=== PATIENT | female | born 1960 | race Caucasian/White ===

== ENCOUNTER 2016-11-25 09:19 | Outpatient (CLI) | payer MEDICAID | END 2016-11-25 09:20 | disposition home or self-care (01) | DX: Z00.00 Encounter for general adult medical examination without abnormal findings (principal); Z83.3 Family history of diabetes mellitus; R94.6 Abnormal results of thyroid function studies ==

== ENCOUNTER 2016-12-05 10:52 | Outpatient (CLI) | payer MEDICAID | END 2016-12-05 10:53 | disposition home or self-care (01) | DX: Z12.31 Encounter for screening mammogram for malignant neoplasm of breast (principal) ==

== ENCOUNTER 2017-01-19 09:22 | Day surgery (SDC) | payer MEDICAID ==
[2017-01-19] MEDS ORDERED: LACTATED RINGERS 1,000 ML IV ONE (09:30)
[2017-01-19] MEDS ORDERED: MIDAZOLAM 2 MG/2 ML VIAL IVP ONE (11:17)
[2017-01-19] MEDS ORDERED: fentaNYL 250 MCG/5 ML VIAL IVP ONE (11:17)
== END 2017-01-19 09:23 | disposition home or self-care (01) ==
PROC: 0DBL8ZX Excision of Transverse Colon, Via Natural or Artificial Opening Endoscopic, Diagnostic (ICD-10-PCS; 2017-01-19)
PROC: 0DBK8ZX Excision of Ascending Colon, Via Natural or Artificial Opening Endoscopic, Diagnostic (ICD-10-PCS; 2017-01-19)
PROC: 0DBP8ZX Excision of Rectum, Via Natural or Artificial Opening Endoscopic, Diagnostic (ICD-10-PCS; principal; 2017-01-19 10:30)
DX: Z12.11 Encounter for screening for malignant neoplasm of colon (principal); D12.3 Benign neoplasm of transverse colon; K62.1 Rectal polyp; D12.2 Benign neoplasm of ascending colon; K64.4 Residual hemorrhoidal skin tags; K21.9 Gastro-esophageal reflux disease without esophagitis; Z90.49 Acquired absence of other specified parts of digestive tract; Z83.3 Family history of diabetes mellitus; Z80.0 Family history of malignant neoplasm of digestive organs; F17.210 Nicotine dependence, cigarettes, uncomplicated; K57.30 Diverticulosis of large intestine without perforation or abscess without bleeding
CPT/HCPCS: 45380; 45385; J3010; J7120

== ENCOUNTER 2017-07-07 13:38 | Outpatient (CLI) | payer MEDICAID ==
--- NOTE | 2017-07-07 15:14 | XRAY Report ---
LEFT HIP AND PELVIS: 07/07/2017 CLINICAL INDICATION: Pain. FINDINGS: Frontal view of the hips and pelvis and frogleg lateral view of the left hip demonstrate m ild left hip osteoarthritis, with small osteophytes. There is no evidence of acute fracture or dislo cation. No radiopaque foreign body is appreciated in the soft tissues. IMPRESSION: MILD LEFT HIP OSTEOARTHRITIS. JOB #: [id number] EXT JOB #:[id number]
== END 2017-07-07 13:39 | disposition home or self-care (01) ==
LOC: DI.N 13:38
PROVIDERS: ATTEND Nurse Practitioner Gerontology
DX: M25.552 Pain in left hip (principal); M16.12 Unilateral primary osteoarthritis, left hip

== ENCOUNTER 2017-09-23 15:06 | Emergency (ER) | payer MEDICAID ==
[2017-09-23 15:12] VITALS: BP 127/78
--- NOTE | 2017-09-23 15:47 | ED Physician Documentation ---
PD HPI HEENT - Stated complaint Stated Complaint: TOOTH PX - Chief complaint Chief Complaint: Heent - History obtained from History obtained from: Patient - History of Present Illness Timing - onset: How many days ago (several) Timing - details: Gradual onset, Still present Location: Tooth (lower left) Associated symptoms: Facial swelling (the past day). No: Fever Recently seen: Emergency Dept (seen here few days ago and had Rx Amox; facial swelling and more pain since.) Review of Systems Constitutional: denies: Fever, Chills Throat: reports: Dental pain / toothache. denies: Sore throat Cardiac: denies: Chest pain / pressure, Palpitations Respiratory: denies: Dyspnea, Cough PD PAST MEDICAL HISTORY - Past Medical History Cardiovascular: Murmur Endocrine/Autoimmune: None GI: GERD, Ulcers : None HEENT: Chronic sinusitis Psych: Claustrophobia Musculoskeletal: Osteoarthritis, Scoliosis, Chronic back pain, Other Derm: Eczema - Past Surgical History Past Surgical History: Yes General: Cholecystectomy Ortho: ACL reconstruction - Present Medications Home Medications: Ambulatory Orders Medication Instructions Recorded Confirmed Omeprazole [PriLOSEC] 20 mg ORAL DAILY 01/18/17 09/23/17 Acetaminophen [Tylenol] 650 mg PO Q6H PRN 09/18/17 09/23/17 Amoxicillin 500 mg PO Q8H #30 capsule 09/18/17 09/23/17 Chlorhexidine Gluconate [Peridex] 5 ml MM BID #118 ml 09/23/17 Clindamycin [Cleocin] 150 mg PO TID #21 capsule 09/23/17 Tramadol HCl 50 mg PO Q6H PRN #20 tablet 09/23/17 - Allergies Allergies/Adverse Reactions: Allergies Allergy/AdvReac Type Severity Reaction Status Date / Time aspirin Allergy Cramps Verified 09/23/17 15:12 hydrocodone bitartrate * Allergy Dizziness Verified 09/23/17 15:12 [From Vicodin] morphine Allergy Anxiety Verified 09/23/17 15:12 pamabrom [From Midol] Allergy Dizziness Verified 09/23/17 15:12 pseudoephedrine HCl * Allergy Dizziness Verified 09/23/17 15:12 [From Sudafed] - Social History Does the pt smoke?: Yes Smoking Status: Current every day smoker Does the pt drink ETOH?: No Does the pt have substance abuse?: No - Immunizations Immunizations are current?: Yes - POLST Patient has POLST: No PD ED PE NORMAL - Vitals Vital signs reviewed: Yes - General General: Alert and oriented X 3, No acute distress, Well developed/nourished - HEENT HEENT: No: Dentition benign (lower left tooth with cavity and tender to percussion. Gum swelling and redness, without fluctuance for draining. ) - Neck Neck: Supple, no meningeal sign, No adenopathy, Other (some lower facial swelling noted. ) - Cardiac Cardiac: RRR, No murmur - Respiratory Respiratory: Clear bilaterally - Derm Derm: Normal color, Warm and dry Results - Vitals Vitals: Oxygen O2 Source Room air PD MEDICAL DECISION MAKING - ED course Complexity details: considered differential (has been on amox for few days and has more swelling. No area of fluctuance to drain. Will change abx. ), d/w patient Departure - Departure Disposition: 01 Home, Self Care Clinical Impression: Dental infection, Pain due to dental caries Condition: Stable Record reviewed to determine appropriate education?: Yes Follow-Up: Gracy Larose ARNP [Primary Care Provider] - Prescriptions: Chlorhexidine Gluconate [Peridex] 5 ml MM BID #118 ml Clindamycin [Cleocin] 150 mg PO TID #21 capsule Tramadol HCl 50 mg PO Q6H PRN #20 tablet PRN Reason: Pain Comments: Stop the amoxicillin and changed to clindamycin instead. Take it with food. Also use chlorhexidine oral rinse 2-3 times a day particularly swishing around the front teeth and gums. For the pain continue Tylenol 4 times a day as needed. Hold off on any ibuprofen so does not bother her stomach. Use tramadol instead every 6 hours as needed. Follow-up with [facility] [address] as planned in October. Return in here or your primary care if still not improving over the next several days. Discharge Date/Time: 09/23/17 16:36
[2017-09-23] MEDS ORDERED: ACETAMINOPHEN 325 MG TABLET PO STA (16:19)
[2017-09-23] MEDS ORDERED: CLINDAMYCIN 150 MG CAPSULE PO STA (16:19)
[2017-09-23] MEDS ORDERED: traMADol 50 MG TABLET PO STA (16:19)
[2017-09-23] MEDS ORDERED: CLINDAMYCIN 150 MG CAPSULE PO ONE (16:34)
[2017-09-23] MEDS ORDERED: ACETAMINOPHEN 325 MG TABLET PO ONE (16:34)
[2017-09-23] MEDS ORDERED: traMADol 50 MG TABLET PO ONE (16:34)
== END 2017-09-23 16:36 | disposition home or self-care (01) ==
LOC: ED 15:06
DX: K04.7 Periapical abscess without sinus (principal); K02.9 Dental caries, unspecified; K08.89 Other specified disorders of teeth and supporting structures; K21.9 Gastro-esophageal reflux disease without esophagitis; M19.90 Unspecified osteoarthritis, unspecified site; Z87.11 Personal history of peptic ulcer disease; F17.200 Nicotine dependence, unspecified, uncomplicated
CPT/HCPCS: 99283; A9270

== ENCOUNTER 2018-07-20 11:55 | Outpatient (CLI) | payer MEDICAID ==
--- NOTE | 2018-07-25 09:42 | Mammography Report ---
Reason: screening mammo Procedure Date: 07/20/2018 Accession Number: [id number] / [id number] Procedure: DENZEL - Screening Mammo Dig Bilat CPT Code: FULL RESULT: EXAM: Screening Mammo Dig Bilat DATE: 07/20/2018 12:46 PM CLINICAL HISTORY: Screening mammogram TECHNIQUE: Bilateral CC and MLO views were obtained. COMPARISON: Mammogram 12/05/2016 FINDINGS: There are scattered fibroglandular densities. There are benign-appearing calcifications and lymph nodes. No suspicious masses, clustered microcalcifications, or regions of architectural distortion are identified. IMPRESSION: Benign findings RECOMMENDATION: Routine annual screening unless otherwise clinically indicated. BIRADS CATEGORY 2: Benign findings STANDARD QUALIFYING STATEMENTS: 1. This examination was reviewed with the aid of Computer-Aided Detection (CAD). 2. A negative or benign imaging report should not delay biopsy if clinically suspicious findings are present. Consider surgical consultation if warrented. More than 5% of cancers are not identified by imaging. 3. Dense breasts may obscure an underlying neoplasm.
== END 2018-07-20 11:56 | disposition home or self-care (01) ==
LOC: DI 11:55
PROVIDERS: ATTEND Nurse Practitioner Gerontology
DX: Z12.31 Encounter for screening mammogram for malignant neoplasm of breast (principal)
CPT/HCPCS: 77067

== ENCOUNTER 2018-11-12 12:32 | Outpatient (CLI) | payer MEDICAID ==
[2018-11-12 13:15] LABS: BASOPHILS % (AUTO) 0.5 %; EOSINOPHILS # (AUTO) 0.1 10^3/uL (0.0-0.7); EOSINOPHILS % (AUTO) 1.3 %; HGB - HEMOGLOBIN 14.7 g/dL (12.0-16.0); LYMPHOCYTES # (AUTO) 1.4 10^3/uL (1.5-3.5); LYMPHOCYTES % (AUTO) 23.3 %; MEAN CORPUSCULAR HEMOGLOBIN 32.9 pg (27.0-31.0); MEAN CORPUSCULAR HGB CONC 33.8 g/dL (32.0-36.0); MEAN CORPUSCULAR VOLUME 97.5 fL (81.0-99.0); MEAN PLATELET VOLUME 9.3 fL (7.9-10.8); MONOCYTES # (AUTO) 0.4 10^3/uL (0.0-1.0); MONOCYTES % (AUTO) 7.2 %; NEUTROPHILS # (AUTO) 4.1 10^3/uL (1.5-6.6); NEUTROPHILS % (AUTO) 67.7 %; PLT - PLATELET COUNT 222 10^3/uL (130-450); RED BLOOD COUNT 4.45 10^6/uL (4.20-5.40)
[2018-11-12 13:17] LABS: BILIRUBIN,URINE NEGATIVE (NEGATIVE); GLUCOSE, URINE (UA) NEGATIVE (NEGATIVE); KETONES,URINE (UA) NEGATIVE (NEGATIVE); LEUKOCYTE ESTERASE, URINE NEGATIVE (NEGATIVE); NITRITE,URINE NEGATIVE (NEGATIVE); OCCULT BLOOD,URINE NEGATIVE (NEGATIVE); PH,URINE 6.5 PH (5.0-7.5); PROTEIN,URINE NEGATIVE (NEGATIVE); UROBILINOGEN,URINE 0.2 (NORMAL) E.U./dL (NORMAL)
[2018-11-12 13:20] LABS: CLARITY,URINE CLEAR (CLEAR)
[2018-11-12 13:20] LABS: ALBUMIN 4.4 g/dL (3.2-5.5); ALBUMIN/GLOBULIN RATIO 1.8 (1.0-2.2); BILIRUBIN,TOTAL 0.5 mg/dL (0.2-1.0); CREATININE 0.6 mg/dL (0.4-1.0); TOTAL PROTEIN 6.9 g/dL (6.7-8.2)
== END 2018-11-12 12:33 | disposition home or self-care (01) ==
LOC: LAB 12:32
PROVIDERS: ATTEND Obstetrics & Gynecology
DX: D06.9 Carcinoma in situ of cervix, unspecified (principal); N81.4 Uterovaginal prolapse, unspecified; N81.6 Rectocele; R10.2 Pelvic and perineal pain; R15.0 Incomplete defecation; K59.09 Other constipation; R15.9 Full incontinence of feces
CPT/HCPCS: 36415; 80053; 81003; 85025; 86850; 86900; 86901

== ENCOUNTER 2018-11-14 07:20 | Observation (INO) | payer MEDICAID ==
--- NOTE | 2018-11-05 14:59 | HISTORY & PHYSICAL EXAMINATION ---
DATE OF SERVICE: 11/15/2018 Physician: Flaco Astorga MD HISTORY/PHYSICAL 11/05/2018 FOR APPROXIMATE ANTICIPATED DATE OF 11/15/2018 DIAGNOSES 1. Cervical intraepithelial neoplasia MAHAMED 3. 2. Grade 2-3 rectocele with smaller cystocele. 3. Chronic constipation. 4. Fecal incontinence. HISTORY OF PRESENT ILLNESS: Patient is a 58-year-old , 2 para 2002, with a history of traumatic births. Her delivery involved a large episiotomy with some manner of internal rotation. It took her several days of hospitalization to recover. Second delivery was easier but was with mid forceps. For the last two years, she reports pelvic pressure and at times feels as if she is sitting on her vagina. She notes that her uterus shifts position and falls, which creates pain as well. She has noticed stress urinary incontinence but does have urinary urgency with frequent voiding. She notes chronic constipation and occasional fecal incontinence when her stools are loose. The fecal incontinence has become increasingly worse since her cholecystectomy. She uses pads and protective clothing. Patient has a history of an abnormal Pap smear, ASCUS, the prompted colposcopy. 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 Patient was counseled on the need for treatment and LEEP procedure was discussed. LEEP was rejected in favor of hysterectomy for permanent resolution of cervical dysplasia. Patient reports situational adjustment reaction and anxiety bouts. She has GERD and left trochanteric bursitis. ALLERGIES: NO KNOWN DRUG ALLERGIES. MEDICATIONS 1. Triamcinolone cream. 2. Omeprazole 20 mg time release daily. 3. Ibuprofen 200 mg every 4 hours p.r.n. 4. Systane 0.4-0.3 percent. REVIEW OF SYSTEMS CONSTITUTIONAL: No unexplained weight losses, fevers, chills. HEENT: Dry eyes; otherwise negative. CARDIAC: Patient states she has had a lifetime heart murmur that has not changed. She has no dyspnea on exertion or chest pain. RESPIRATORY: Long time smoker, admits to smoker's cough. GASTROINTESTINAL: GERD as noted before. GENITOURINARY: Referenced above. MUSCULOSKELETAL: Hip bursitis. SKIN Eczema. NEUROLOGIC: Negative. PSYCHIATRIC: Anxiety disorder. ENDOCRINE: Negative. HEMATOLOGIC/LYMPHATIC: The patient denies easy bleeding tendencies. BREASTS: Negative. SOCIAL HISTORY: . Has a close friend and confidant. Long time smoker, a half a pack per day. No drug or alcohol use noted. FAMILY HISTORY: Denies family history of ovarian cancer, colon cancer. PHYSICAL EXAMINATION VITAL SIGNS: As posted. Office blood pressure 98/62. Height and weight not in office record. HEENT: Supple neck. No thyromegaly, dentition in good repair. CARDIAC: Grade 2/6 systolic ejection murmur with no diastolic component, rub, or gallop. ABDOMEN: No organomegaly. No tenderness. No evidence of herniation. EXTERNAL GENITALIA: Mild atrophy. No lesions. EXTREMITIES: Nonedematous somewhat limited range of motion. NEUROLOGIC: Grossly intact. Pudendal nerves intact. VAGINA: No blood, discharge, or lesions. CERVIX: Mild cervicitis. GENITOURINARY: Uterus is hypermobile, normal size. Adnexa, normal size. Ovaries, right and left, no tenderness. PSYCHIATRIC: Alert, appropriate. ADMISSION LABORATORY/DATA: Pending. Chest x-ray and EKG pending. ASSESSMENT: Patient is a 58-year-old woman who has developed pelvic organ prolapse after a traumatic births. She currently has difficulty with fecal incontinence and pelvic pressure. The prolapse is predominantly in the posterior compartment but does involve the anterior compartment and uterus. We discussed use of pessary, which was rejected. Patient has a history of MAHAMED 3 and desires excision as opposed to LEEP or Conization. Surgery would remedy a prolapse and MAHAMED at the same time. We discussed the risks and benefits of surgery. She is aware of blood loss, transfusion, infection, damage to urinary tract or intestines, failure of the repair, and anesthesia reactions/. We discussed these in detail. We reviewed the intended procedure, LAVH with BSO. We reviewed ACOG pamphlets on hysterectomy, prolapse and prolapse repair in detail. Patient is certain at this point of her decision. PLAN: LAVH with anterior and posterior repair and Garcia's procedure. If Garcia's does not provide adequate apical support, we will move to sacrospinous suspension procedure. In addition to the usual prolapse repair, perineoplasty will be done as well as cystoscopy. TD: 11/05/2018 13:30 [facility]
[~2018-11-14 07:20] MED LIST: ceFAZolin 2 GM/50 ML 2 GM/50 ML BAG IV ONE
[2018-11-14] MEDS ORDERED: BUPIVACAINE 0.25%-EPI 1:200000 PF 30 ML VIAL ONE (07:59)
[2018-11-14] MEDS ORDERED: LACTATED RINGERS 1,000 ML IV ONE ×2 (08:14→10:38)
--- NOTE | 2018-11-14 08:24 | ANESTHESIA ---
Pre-Anesthesia VS, & Labs - Diagnosis MAHAMED 3, 3rd degree rectocele, 1st degree cystocele, uterine prolapse, pelvic pain, chronic constipation and fecal incontinence - Procedure Laprascopic assisted vaginal hysterectomy with bilateral sapin-oopherectomy, anterior/posterior repair, McCalls culdoplasty, perinealplasty, cystoscopy Vital Signs: Temp Pulse Resp BP Pulse Ox 36.6 C 74 16 122/70 100 11/14/18 07:40 11/14/18 07:40 11/14/18 07:40 11/14/18 07:40 11/14/18 07:40 Height 5 ft Weight (kg) 58.4 kg Body Mass Index 29.7 - NPO >8 hours - Is Patient ?: No Home Medications and Allergies Home Medications: Ambulatory Orders Multivitamin [Multiple Vitamins] 1 each PO DAILY 11/12/18 Omeprazole [PriLOSEC] 20 mg ORAL DAILY 01/18/17 Acetaminophen [Tylenol] 650 mg PO Q6H PRN 09/18/17 Multivitamin [Multiple Vitamins] 1 each PO DAILY 11/12/18 Allergies/Adverse Reactions: Allergies Allergy/AdvReac Type Severity Reaction Status Date / Time hydrocodone bitartrate * Allergy Intermediate " causes Verified 11/14/18 07:55 [From Vicodin] heart pounding" aspirin Allergy Cramps Verified 11/12/18 13:43 diazepam [From Valium] Allergy Unknown Verified 11/14/18 07:55 morphine Allergy Anxiety Verified 11/12/18 13:43 pamabrom [From Midol] Allergy palpitation Verified 11/12/18 13:43 s pseudoephedrine HCl * Allergy palpitation Verified 11/12/18 13:43 [From Sudafed] s Anes History & Medical History - Anesthetic History Anesthesia Complications: reports: No previous complications - Medical History Cardiovascular: reports: Murmur Pulmonary: reports: None Gastrointestinal: reports: GERD (controlled with medication), Ulcers, Chronic constipation Urinary: reports: None Neuro: reports: None Musculoskeletal: reports: Osteoarthritis, Chronic back pain, Other Endocrine/Autoimmune: reports: None Blood Disorders: reports: None Skin: reports: Eczema Smoking Status: Current every day smoker (1/2 pack per day for 30 years) Psychosocial: reports: No issues indicated - Surgical History General: Cholecystectomy Gynecologic: section Orthopedic: Arthroscopic surgery Results - EKG Results EKG Comparison: Reviewed EKG, Normal EKG Exam General: Alert, Oriented x3, Cooperative, No acute distress Dental: Dentures full Upper, Dentures full Lower Mouth Openin Fingerbreadth Neck Mobility: Normal Mallampati classification: II Thyromental Distance: 4-6 cm Respiratory: Lungs clear, Normal breath sounds, No respiratory distress, No accessory muscle use Cardiovascular: Regular rate, Normal S1, Normal S2, No murmurs Mental/Cognitive Status: Alert/Oriented X3, Normal for patient Plan Anesthesia Type: General Consent for Procedure(s) Verified and Reviewed: Yes Code Status: Attempt Resuscitation ASA classification: 2-Mild systemic disease Is this case an emergency?: No
--- NOTE | 2018-11-14 08:36 | XRAY Report ---
Reason: pre op. Procedure Date: 11/14/2018 Accession Number: [id number] / [id number] Procedure: XR - Chest 2 View X-Ray CPT Code: 74673 FULL RESULT: EXAM: CHEST RADIOGRAPHY EXAM DATE: 11/14/2018 08:22 AM. CLINICAL HISTORY: Pre op. COMPARISON: None. TECHNIQUE: 2 views. FINDINGS: Lungs/Pleura: No focal consolidation, pneumothorax, or pleural effusion. A few faint peripheral opacities at the right lung base likely represent atelectasis or scar. Mediastinum: Heart and mediastinal contours are unremarkable. Other: Healed right posterolateral seventh rib fracture. Mild dextroconvex thoracolumbar scoliosis. Surgical clips are present in the right upper quadrant of the abdomen. IMPRESSION: No evidence of active cardiopulmonary process. RADIA
[2018-11-14] MEDS ORDERED: ONDANSETRON 4 MG/2 ML VIAL IVP PRN (09:22)
--- NOTE | 2018-11-14 09:29 | OPERATIVE REPORT ---
Operative Report - General Planned Procedure: LAVH with prolapse repair Pre-Op Diagnosis: Third-degree rectocele first degree cystocele with uterine prolapse; MAHAMED 3 Procedure Performed: laparoscopic-assisted vaginal hysterectomy, (LAVH); Sacral spinous vaginal suspension; bilateral salpingo-oophorectomy, (BSO); rectocele repair; Garcia's culdoplasty; cystoscopy Post Op Diagnosis: Same as above - Procedure Note Primary Surgeon: Flaco Astorga MD, FACOG, FICS Secondary Surgeon: Flaco Fox MD, FACOG Anesthesia Provider: Michael Navas MD Anesthesia Technique: General ET tube, Other (Local 0.25% Marcaine) Pathology: Tubes ovaries and uterus IV Fluids (mL): 1,000 Estimated Blood Loss (mL): 50 Urine Output (mL): 150 (Clear with some methylene blue staining) Drain/Tube Type: Other (Subramanian catheter) Complications: None - Other Other Information/Narrative: PREOP Prior to entering the OR, I met the patient and family in the preoperative holding room. We reviewed her informed consent. Our discussion included occasions, mechanics of the procedures, intended benefits, risks /possible complications and alternatives. She is aware of the possibility of blood loss, transfusion, wound infection, damage to bowel, damage to bladder or urinary tract and postoperative pain. She understands that surgery may not remedy all of her problems and over time prolapse could develop. We discussed oophorectomy again and the patient states that she would like to remove her ovaries. We discussed rectocele repair and patient understands that this will probably improve her defecate fei function but may not remedy her fecal incontinence. All questions were reviewed and answered. Informed consent paperwork was signed. Patient's medical history and intended procedure was reviewed with anesthesiology and OR staff. FINDINGS 1. The external exam genitalia were examined and no concerning lesions were discovered. There was no evidence of genital trauma. The hiatus was 5.0 centimeters in diameter. The clitoris was of normal size. The distribution of pubic hair was normal. The urethra was was had a appropriate angle and of normal caliber. 2. Examination of the vagina found a normal rugated mucosa without evidence of lesions. There was no blood or discharge evident. Note the vagina had been prepped prior to examination. There was 3rd degree rectocele extruding through the hymenal ring and approximately the size of an orange. The cystocele was smaller and post hysterectomy when some apical support was restored it was much smaller than original exam. 3. Cervix was without significant cervicitis or visible plaques/lesions. There was no paracervical fullness. 4. Uterus was retroverted anteflexed and normal size without evidence of . The contour the uterus was smooth and not suggestive of fibroids. 5. Ovaries were of normal size and mobile. The left ovarian capsular surface had fibrosis and scarring. 6. Rectal vaginal exam documented there were no intraluminal stitches. LAVH Patient was brought into the operating room and placed on the table in the supine position. She was uneventfully induced and intubated. She was moved to the low dorsal lithotomy position on [facility] mobile stirrups. Timeout briefing was done per protocol. She was prepped and draped in the customary sterile fashion. Exam under anesthesia was done. A Graves speculum was used to visualize the cervix. The anterior cervical lip was grasped with single-tooth tenaculum. Serial application of Hegar probes was employed to determine the endocervical axis and gently dilate. HUMI uterine manipulator was placed uneventfully. All instruments were then removed from the vagina. Subramanian was placed, with clear urine output. After injection of Marcaine quarter percent with epinephrine local, a small incision was placed under the umbilical skin fold. A 5 mm Visiport trocar was introduced through the incision and into the abdomen under direct visualization. The abdomen was insufflated with CO2 gas at 12 mm of pressure. Atraumatic entry was confirmed. A 5 mm trocars were uneventfully inserted into the left and right lower quadrant under direct visualization. Patient was placed in deeper Trendelenburg and the abdominal and pelvic contents were assessed. Reference findings section and photos. The right tube was gently placed on medial / superior tension and then using a LigaSure it was uneventfully excised in a stepwise fashion. The right utero- ovarian ligament and round ligament were desiccated and divided. The broad ligament was dissected bluntly and then divided with LigaSure to skeletonize the right uterine vessels. Right uterine vessels and the position of the ureter were identified. Right uterine vessels were desiccated and divided using LigaSure. Blunt & sharp dissection developed the bladder flap using LigaSure. At this point, we converted to the vaginal phase. The abdomen was desufflated of CO2 gas and the legs were moved to a high dorsal lithotomy position. HUMI was removed. The cervix was grasped with Gerda clamps and placed on tension. Small aliquots of 0.25% Marcaine with epinephrine were injected around the cervix to create a liquid tourniquet. The cervix was then circumscribed with Bovie's pencil. Blunt and sharp dissection were used to develop the fascia. The posterior compartment was sharply entered and Stiner speculum placed. Anterior component was sharply entered and goal Jazmine retractor placed. Remnants of the uterosacral ligament were clamped, transected and transfixed with 0 Vicryl. The right uterosacral ligament slipped from the Jazmine clamp despite firm closure of the clamp. The pedicle was regrasped with Melchor clamp and double suture ligated with 0 Vicryl. Cardinal ligament, paracervical tissue was clamped, transected and transfixed with 0 Vicryl. At this point, the uterus was uneventfully delivered through the colpotomy wound. The pelvic peritoneum was pursestringed with 2 sutures of 2-0 Vicryl in multiple layers as to reduce the cul-de-sac pouch. The uterosacral ligament sutures were then sutured into the vaginal cuff to ensure suspension. We confirmed hemostasis was good. The vaginal mucosa was closed with a running stitch of 0 chromic. McCalls Culdoplasty could not be accomplished due to inability to locate the right uterosacral ligament. Therefore to provide adequate apical support we moved to the sacral spinous colpopexy. Posterior Colporrhaphy Small aliquots of quarter percent Marcaine with epinephrine were injected in the midline of the rectocele to begin [place] dissection. Next, a scalpel was used to incise the vaginal mucosa in the midline. Allis Bannock clamps were placed at the margins of the wound the pelvic fascial layer was identified then developed using both sharp and blunt dissection out towards the lateral margins of the rectocele. Wilber retractor was then placed and utilized to better visualize the extent of the test. Dissection was in a avascular plane and only minimal electrocautery was required for hemostasis, supplemented by an occasional stitch of 3-0 Vicryl. The denuded fascial area was rinsed with gentamicin solution and normal saline. By gross inspection, there was no incursion into the rectum. Eventually 2 large template flaps of vaginal mucosa were developed. The vaginal mucosa was trimmed to size then closed with a series of interrupted vertical mattress stitches of 2-0 Vicryl. Closure was done carefully as to maintain nieces and match the hymenal rings. Later digital exam of the rectum confirmed absence of intraluminal rectal stitches. Anterior Colporrhaphy was not performed due to the cystocele being corrected with better apical support. Additionally, her symptoms were minimal. Sacral spinous suspension with Capio device Using sharp and blunt dissection, a tunnel for the sacral spinous suspension sutures was created retroperitoneally down to the region of the sacral spine. The anatomy of the spine, sacral spinous ligament and margins of the colon were delineated by palpation. Next P.o. device was was loaded and brought to the field. The P.o. was passed down the tunnel and placed 1 cm lateral to the spine and then fired through the uterosacral ligament. Next a second O stitch was placed approximately 0.5 cm medial to the first uneventfully. These stitches were placed under traction and found to be very firm firmly placed. The stitches brand marketing intern were brought to the vaginal cuff closure with fixation knots placed through the underside of the vaginal mucosa to create frances effect. There was no bleeding and the large intestine was not encroached on. The frances stitches were then pulled tightly tied to suspend the vaginal tube superiorly and slightly to the right without any suture bridge. The tunnel was lavaged with gentamicin enriched irrigation. At this point the posterior colporrhaphy closure closure was completed as stitches were placed every centimeter down to the level of the hymenal ring Perineoplasty A V shaped section of perineal skin was removed cut with scalpel. The base of the triangle was at the 8 o'clock position and 4 o'clock position on the hymenal ring and apex extended down to the perianal region. Interrupted sutures of 0 Vicryl were then placed to reapply to approximate the perineal body and to reapproximate the levator plate muscles. The skin incision was closed with interrupted sutures of 2-0 Vicryl. Cystoscopy 70 degree video cystoscope was calibrated and white balanced. The cystoscope was lubricated and passed atraumatically through the urethra into the bladder cavity. Bladder was insufflated with sterile normal saline. Systematic inspection revealed no encroachment on the bladder such as stitches or perforation. Both ureters were patent with free flow of blue urine. Photographs were taken to document the same Disposition Patient was uneventfully awakened from general anesthesia and sent to the recovery room in stable condition. She will remain overnight and be reevaluated in the morning to determine further hospitalization is required. Final sponge needle and instrument count was confirm correct.
[2018-11-14] MEDS ORDERED: ROCURONIUM 50 MG/5 ML VIAL IVP ONE (10:00)
[2018-11-14] MEDS ORDERED: GLYCOPYRROLATE 1 MG/5 ML VIAL IVP ONE (10:00)
[2018-11-14] MEDS ORDERED: ceFAZolin 2 GM/50 ML 2 GM/50 ML BAG IV ONE (10:00)
[2018-11-14] MEDS ORDERED: ONDANSETRON 4 MG/2 ML VIAL IVP ONE (10:00)
[2018-11-14] MEDS ORDERED: NEOSTIGMINE 1 MG/1 ML 10 ML MDV IVP ONE (10:00)
[2018-11-14] MEDS ORDERED: fentaNYL 250 MCG/5 ML VIAL IVP ONE (10:00)
[2018-11-14] MEDS ORDERED: ACETAMINOPHEN 1,000 MG/100 ML 100 ML IV ONE (10:00)
[2018-11-14] MEDS ORDERED: PROPOFOL 200 MG/20 ML VIAL IVP ONE (10:00)
[2018-11-14] MEDS ORDERED: KETOROLAC 30 MG/ML VIAL IVP ONE (10:00)
[2018-11-14] MEDS ORDERED: BUPIVACAINE 0.25%-EPI 1:200000 PF 30 ML VIAL SUBQ ONE ×2 (10:30)
[2018-11-14] MEDS ORDERED: METHYLENE BLUE 0.5% 50 MG/10 ML AMPULE ONE (11:42)
[2018-11-14] MEDS ORDERED: HYDROmorphone 0.5 MG/0.5 ML SYRINGE ONE (12:37)
[2018-11-14] MEDS ORDERED: SODIUM CHLORIDE FLUSH 0.9% 10 ML SYRINGE ONE (13:16)
[2018-11-14] MEDS: IBUPROFEN 600 MG TABLET PO SCH ×2 (14:28→17:54)
[2018-11-14] MEDS: NICOTINE 14 MG PATCH TOP SCH (15:05)
[2018-11-14] MEDS ORDERED: ESTROGENS, CONJUGATED CREAM 30 GM TUBE VG ONE (15:21)
[2018-11-14] MEDS: oxyCODONE 5 MG TABLET PO PRN ×2 (15:59→22:56)
[2018-11-14] MEDS ORDERED: MAGNESIUM HYDROXIDE 2,400 MG/30 ML UDC PO PRN (20:17)
[2018-11-15] MEDS: IBUPROFEN 600 MG TABLET PO SCH ×4 (00:08→17:23)
[2018-11-15] MEDS ORDERED: SODIUM CHLORIDE FLUSH 0.9% 10 ML SYRINGE ONE (00:13)
[2018-11-15] MEDS: oxyCODONE 5 MG TABLET PO PRN ×5 (03:06→19:17)
[2018-11-15 06:24] LABS: BASOPHILS % (AUTO) 0.3 %; EOSINOPHILS # (AUTO) 0.1 10^3/uL (0.0-0.7); EOSINOPHILS % (AUTO) 1.1 %; HGB - HEMOGLOBIN 10.6 g/dL (12.0-16.0); LYMPHOCYTES # (AUTO) 2.1 10^3/uL (1.5-3.5); LYMPHOCYTES % (AUTO) 18.8 %; MEAN CORPUSCULAR HEMOGLOBIN 33.4 pg (27.0-31.0); MEAN CORPUSCULAR HGB CONC 33.5 g/dL (32.0-36.0); MEAN CORPUSCULAR VOLUME 99.8 fL (81.0-99.0); MEAN PLATELET VOLUME 8.6 fL (7.9-10.8); MONOCYTES % (AUTO) 8.7 %; NEUTROPHILS # (AUTO) 7.8 10^3/uL (1.5-6.6); NEUTROPHILS % (AUTO) 71.1 %; PLT - PLATELET COUNT 166 10^3/uL (130-450); RED BLOOD COUNT 3.18 10^6/uL (4.20-5.40); RED CELL DISTRIBUTION WIDTH 13.5 % (12.0-15.0)
[2018-11-15 06:35] LABS: ALBUMIN 2.8 g/dL (3.2-5.5); ALBUMIN/GLOBULIN RATIO 1.3 (1.0-2.2); BILIRUBIN,TOTAL 0.3 mg/dL (0.2-1.0); CALCIUM 7.7 mg/dL (8.5-10.3); CREATININE 0.6 mg/dL (0.4-1.0); TOTAL PROTEIN 4.9 g/dL (6.7-8.2)
[2018-11-15] MEDS: DOCUSATE SODIUM 250 MG CAPSULE PO SCH (09:06)
[2018-11-15] MEDS: NICOTINE 14 MG PATCH TOP SCH (09:06)
[2018-11-15] MEDS: LACTULOSE 10 GM /15 ML UDC PO SCH (09:06)
--- NOTE | 2018-11-15 09:50 | PROVIDER PROGRESS NOTE ---
Subjective - General Procedure Date: 11/14/18 Post Op Days: 1 Procedure Performed: LAVH, sacral spinous suspension, rectocele repair, cystoscopy - Review of Systems Wound/Incisions: positive: Healing well Drain Type: Subramanian out General: positive: No symptoms, Other (She reports pain controlled but requires q. 4-hour oxycodone.) HEENT: positive: No symptoms Pulmonary: positive: No symptoms Cardiovascular: positive: No symptoms Gastrointestinal: positive: No symptoms, Flatus (No bowel movement) Genitourinary: positive: Pain (She reports feeling sore) Musculoskeletal: positive: No symptoms Skin: positive: No symptoms Psychiatric: positive: No symptoms - Other Other Information/Narrative: Patient is up at the side of the bed and preparing to shower. She reports no orthostatic dizziness disturbance in cardiac rhythm dyspnea or chest pain. She took in a breakfast well without any problems. SCD devices functional. Vaginal packing and Subramanian discontinued. Objective - Patient Data Vital Signs: Vital Signs x48h Temp Pulse Pulse Resp BP Pulse Ox 11/15/18 07:35 98.1 F 82 16 92/50 L 97 11/15/18 06:20 72 103/50 L 11/15/18 05:45 98.4 F 75 16 86/48 L 98 Weight: Weight 11/13/18 11/14/18 11/15/18 23:59 23:59 23:59 Weight (kg) 58.4 kg Intake & Output: Intake and Output Totals x24h 11/13/18 11/14/18 11/15/18 23:59 23:59 23:59 Intake Total 2450 370 Output Total 750 1375 Balance 1700 -1005 - Lab Results Lab Results: 11/15/18 06:15 11/15/18 06:15 Other Lab Results: Lab Results x24hrs 11/15/18 11/15/18 Range/Units 06:15 06:15 WBC 11.0 H (4.8-10.8) x10^3/uL RBC 3.18 L (4.20-5.40) 10^6/uL Hgb 10.6 L (12.0-16.0) g/dL Hct 31.7 L (37.0-47.0) % MCV 99.8 H (81.0-99.0) fL MCH 33.4 H (27.0-31.0) pg MCHC 33.5 (32.0-36.0) g/dL RDW 13.5 (12.0-15.0) % Plt Count 166 (130-450) 10^3/uL MPV 8.6 (7.9-10.8) fL Neut # (Auto) 7.8 H (1.5-6.6) 10^3/uL Lymph # (Auto) 2.1 (1.5-3.5) 10^3/uL Mobile # (Auto) 1.0 (0.0-1.0) 10^3/uL Eos # (Auto) 0.1 (0.0-0.7) 10^3/uL Baso # (Auto) 0.0 (0.0-0.1) 10^3/uL Absolute Nucleated RBC 0.01 x10^3/uL Nucleated RBC % 0.1 /100WBC Sodium 136 (135-145) mmol/L Potassium 3.7 (3.5-5.0) mmol/L Chloride 106 (101-111) mmol/L Carbon Dioxide 27 (21-32) mmol/L Anion Gap 3.0 L (6-13) BUN 9 (6-20) mg/dL Creatinine 0.6 (0.4-1.0) mg/dL Estimated GFR (MDRD) 102 (>89) Glucose 108 H (70-100) mg/dL Calcium 7.7 L (8.5-10.3) mg/dL Total Bilirubin 0.3 (0.2-1.0) mg/dL AST 17 (10-42) IU/L ALT 12 (10-60) IU/L Alkaline Phosphatase 48 (42-121) IU/L Total Protein 4.9 L (6.7-8.2) g/dL Albumin 2.8 L (3.2-5.5) g/dL Globulin 2.1 (2.1-4.2) g/dL Albumin/Globulin Ratio 1.3 (1.0-2.2) - Current Medications Current Medications: Current Medications Generic Name Dose Route Start Last Admin Trade Name Freq PRN Reason Stop Dose Admin Docusate Sodium 250 mg 11/15/18 09:00 11/15/18 09:06 Colace 250mg Capsule PO 250 mg DAILY PRAVEEN Administration Ibuprofen 600 mg 11/14/18 12:00 11/15/18 06:20 Motrin PO 600 mg Q6HR PRAVEEN Administration Lactulose 10 gm 11/15/18 09:00 11/15/18 09:06 Enulose PO 10 gm DAILY PRAVEEN Administration Nicotine 1 patch 11/14/18 13:00 11/15/18 09:06 Nicoderm TOP Not Given DAILY PRAVEEN Ondansetron HCl 4 mg 11/14/18 09:22 11/14/18 15:59 Zofran Inj IVP 4 mg Q6HR PRN Administration Nausea / Vomiting Oxycodone HCl 5 mg 11/14/18 09:23 11/15/18 07:48 Roxicodone PO 5 mg Q4HR PRN Administration PAIN Ranitidine HCl 150 mg 11/14/18 16:00 11/15/18 09:06 Zantac PO 150 mg DAILY PRAVEEN Administration Physical Exam - Physical Exam General: positive: No acute distress HEENT: positive: Moist mucous membranes Neck: positive: Supple w/out meningeal sx Cardiac: positive: Regular Rate, Regular Rhythm Resipratory: positive: Clear to ausultation tierra, Other (Demonstrates ability to incentive spirometry) Abdomen: positive: Normal Bowel sounds, Surgical Scars (Surgical wounds normal) Female : positive: Normal external (Perineoplasty stitches intact), Other (Vaginal packing removed, gauze partially bloody but no fresh blood) Extremities: positive: No pedal edema Skin: positive: Warm and dry Neurologic: positive: Alert and Oriented X 3, Normal motor/no weakness, Normal Sensation, Normal Speech Assessment/Plan - Assessment/Plan Assessment: Patient has asymptomatic hypotension and is able to stand, walk and shower. Eris p in hemoglobin is as expected and not alarming. Electrolytes are normal. Neurologically she is intact. There is no evidence of cardiac event. This is only postop day 1 and we will require today to determine the significance of the hypotension. Repair seems intact. Plan: Will continue observation today to determine if hypotension is significant. Due to posterior repair she may have voiding dysfunction and require extension of hospitalization. Until the hypotension issue is sorted out she cannot safely be discharged.
--- NOTE | 2018-11-15 15:26 | PROVIDER PROGRESS NOTE ---
Subjective - Prog Note Date Prog Note Date: 11/15/18 Prog Note Time: 15:20 - Subjective Pt reports feeling: No change (Patient unable to void) Subjective: Toyin Briscoe is 1 day postop extensive pelvic reconstruction procedures and LAVH. Her Subramanian and packing were removed this morning. She is unable to void and finds this quite painful. Postvoid residual is 500. Overexpansion of bladder and excessive straining in danger the integrity of her prolapse repair. Given these difficulties she does not feel able to care for self at home at this time. Therefore she is moved to a observation status to allow time for recovery of b ladder and bowel function. Total time required should not exceed 96 hours. Objective - Vital Signs/Intake & Output Vital Signs: Vital Signs x48h Temp Pulse Pulse Resp BP Pulse Ox 11/15/18 12:58 97.9 F 66 16 109/60 100 11/15/18 11:43 98.1 F 64 18 113/63 100 11/15/18 07:35 98.1 F 82 16 92/50 L 97 Intake & Output: Intake & Output 11/12/18 11/13/18 11/14/18 11/15/18 23:59 23:59 23:59 23:59 Intake Total 2450 810 Output Total 750 1600 Balance 1700 -790 - Lab Results Fish Bones: 11/15/18 06:15 11/15/18 06:15 Other Labs: Lab Results x24hrs 11/15/18 11/15/18 Range/Units 06:15 06:15 WBC 11.0 H (4.8-10.8) x10^3/uL RBC 3.18 L (4.20-5.40) 10^6/uL Hgb 10.6 L (12.0-16.0) g/dL Hct 31.7 L (37.0-47.0) % MCV 99.8 H (81.0-99.0) fL MCH 33.4 H (27.0-31.0) pg MCHC 33.5 (32.0-36.0) g/dL RDW 13.5 (12.0-15.0) % Plt Count 166 (130-450) 10^3/uL MPV 8.6 (7.9-10.8) fL Neut # (Auto) 7.8 H (1.5-6.6) 10^3/uL Lymph # (Auto) 2.1 (1.5-3.5) 10^3/uL [place] # (Auto) 1.0 (0.0-1.0) 10^3/uL Eos # (Auto) 0.1 (0.0-0.7) 10^3/uL Baso # (Auto) 0.0 (0.0-0.1) 10^3/uL Absolute Nucleated RBC 0.01 x10^3/uL Nucleated RBC % 0.1 /100WBC Sodium 136 (135-145) mmol/L Potassium 3.7 (3.5-5.0) mmol/L Chloride 106 (101-111) mmol/L Carbon Dioxide 27 (21-32) mmol/L Anion Gap 3.0 L (6-13) BUN 9 (6-20) mg/dL Creatinine 0.6 (0.4-1.0) mg/dL Estimated GFR (MDRD) 102 (>89) Glucose 108 H (70-100) mg/dL Calcium 7.7 L (8.5-10.3) mg/dL Total Bilirubin 0.3 (0.2-1.0) mg/dL AST 17 (10-42) IU/L ALT 12 (10-60) IU/L Alkaline Phosphatase 48 (42-121) IU/L Total Protein 4.9 L (6.7-8.2) g/dL Albumin 2.8 L (3.2-5.5) g/dL Globulin 2.1 (2.1-4.2) g/dL Albumin/Globulin Ratio 1.3 (1.0-2.2)
[2018-11-15] MEDS ORDERED: MAGNESIUM HYDROXIDE 2,400 MG/30 ML UDC PO SCH (17:21)
[2018-11-16] MEDS: IBUPROFEN 600 MG TABLET PO SCH ×4 (00:27→18:53)
[2018-11-16 05:32] LABS: BASOPHILS % (AUTO) 0.4 %; EOSINOPHILS # (AUTO) 0.1 10^3/uL (0.0-0.7); EOSINOPHILS % (AUTO) 1.3 %; HGB - HEMOGLOBIN 10.6 g/dL (12.0-16.0); LYMPHOCYTES # (AUTO) 2.4 10^3/uL (1.5-3.5); LYMPHOCYTES % (AUTO) 23.9 %; MEAN CORPUSCULAR HEMOGLOBIN 33.1 pg (27.0-31.0); MEAN CORPUSCULAR VOLUME 100.3 fL (81.0-99.0); MEAN PLATELET VOLUME 8.9 fL (7.9-10.8); MONOCYTES # (AUTO) 0.9 10^3/uL (0.0-1.0); MONOCYTES % (AUTO) 8.9 %; NEUTROPHILS # (AUTO) 6.5 10^3/uL (1.5-6.6); NEUTROPHILS % (AUTO) 65.5 %; PLT - PLATELET COUNT 168 10^3/uL (130-450); RED BLOOD COUNT 3.19 10^6/uL (4.20-5.40); RED CELL DISTRIBUTION WIDTH 13.7 % (12.0-15.0); WHITE BLOOD COUNT 9.9 x10^3/uL (4.8-10.8)
[2018-11-16] MEDS: oxyCODONE 5 MG TABLET PO PRN ×4 (07:02→20:19)
[2018-11-16] MEDS: POLYETHYLENE GLYCOL 3350 17 GM PACKET PO SCH (08:19)
[2018-11-16] MEDS: LACTULOSE 10 GM /15 ML UDC PO SCH (08:19)
[2018-11-16] MEDS: DOCUSATE SODIUM 250 MG CAPSULE PO SCH (08:20)
[2018-11-16] MEDS ORDERED: SENNA 8.6 MG TABLET PO SCH (09:00)
[2018-11-16] MEDS: NICOTINE 14 MG PATCH TOP SCH (11:25)
[2018-11-16] MEDS ORDERED: BISACODYL 10 MG SUPP PR ONE (15:42)
[2018-11-16] MEDS ORDERED: MAGNESIUM CITRATE 296 ML BOTTLE PO ONE (18:13)
[2018-11-16] MEDS ORDERED: HYDROmorphone 1 MG/ML CARPUJECT IVP PRN (21:51)
[2018-11-16] MEDS ORDERED: SODIUM CHLORIDE FLUSH 0.9% 10 ML SYRINGE ONE (22:27)
[2018-11-17] MEDS: IBUPROFEN 600 MG TABLET PO SCH ×3 (00:25→12:37)
[2018-11-17] MEDS: oxyCODONE 5 MG TABLET PO PRN ×4 (00:49→16:51)
[2018-11-17] MEDS: SENNA 8.6 MG TABLET PO SCH ×2 (00:50→03:12)
--- NOTE | 2018-11-17 08:33 | PROVIDER PROGRESS NOTE ---
Subjective - General Admit Date: 11/15/18 Procedure Date: 11/14/18 Post Op Days: 3 Procedure Performed: LAVH, sacral spinous suspension, rectocele repair, cystoscopy - Review of Systems Wound/Incisions: positive: Healing well Drain Type: Subramanian out General: positive: No symptoms, Other (She reports pain controlled but requires q. 4-hour oxycodone.) HEENT: positive: No symptoms Pulmonary: positive: No symptoms Cardiovascular: positive: No symptoms Gastrointestinal: positive: No symptoms, Flatus, Other (Patient reports multiple bouts of defecation, for the most part semisolid stool) Genitourinary: positive: Pain (She reports feeling sore. Single dose of Dilaudid IV required last night.), Retention (Post void residuals between 150 and 275 up to 500) Musculoskeletal: positive: No symptoms Skin: positive: No symptoms Psychiatric: positive: Anxiety (Patient nervous about catheterization procedure and speed of postoperative recovery.) Objective - Patient Data Vital Signs: Vital Signs x48h Temp Pulse Resp BP Pulse Ox 11/17/18 08:01 97.9 F 88 18 110/55 L 97 11/17/18 04:10 97.9 F 67 16 112/55 L 95 Weight: Weight 11/15/18 11/16/18 11/17/18 23:59 23:59 23:59 Weight (kg) 58.1 kg Intake & Output: Intake and Output Totals x24h 11/15/18 11/16/18 11/17/18 23:59 23:59 23:59 Intake Total 1450 1160 510 Output Total 3325 3965 400 Balance -1875 -2805 110 - Lab Results Lab Results: 11/16/18 05:18 11/15/18 06:15 - Current Medications Current Medications: Current Medications Generic Name Dose Route Start Last Admin Trade Name Freq PRN Reason Stop Dose Admin Hydromorphone HCl 1 mg 11/16/18 21:51 11/16/18 22:28 Dilaudid Inj Carp IVP 1 mg Q2HR PRN Administration Severe PAIN Ibuprofen 600 mg 11/14/18 12:00 11/17/18 06:08 Motrin PO Not Given Q6HR PRAVEEN Lactulose 10 gm 11/15/18 09:00 11/16/18 08:19 Enulose PO 10 gm DAILY PRAVEEN Administration Nicotine 1 patch 11/14/18 13:00 11/16/18 11:25 Nicoderm TOP Not Given DAILY PRAVEEN Ondansetron HCl 4 mg 11/14/18 09:22 11/14/18 15:59 Zofran Inj IVP 4 mg Q6HR PRN Administration Nausea / Vomiting Oxycodone HCl 5 mg 11/14/18 09:23 11/17/18 06:47 Roxicodone PO 5 mg Q4HR PRN Administration Moderate pain Polyethylene Glycol 17 gm 11/16/18 09:00 11/16/18 08:19 Miralax PO 17 gm DAILY PRAVEEN Administration Ranitidine HCl 150 mg 11/14/18 16:00 11/16/18 08:19 Zantac PO 150 mg DAILY PRAVEEN Administration Physical Exam - Physical Exam General: positive: No acute distress, Anxious, Alert HEENT: positive: Moist mucous membranes Neck: positive: Supple w/out meningeal sx Abdomen: positive: Normal Bowel sounds, Surgical Scars Female : positive: Other (Bladder training regimen ongoing) Extremities: positive: Normal ROM, No pedal edema Skin: positive: Warm and dry Neurologic: positive: Normal motor/no weakness, Normal Sensation, Normal Speech Assessment/Plan - Assessment/Plan Assessment: Hemoglobin stable and patient hemodynamically stable. The greatest problem is urinary retention and slow progress with bladder training. Patient is now becoming more mobile and can be taught self bladder training/post void catheterization procedure. 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 Plan: Add low-dose Ativan to current medication regimen Teach patient to self catheterize and how to comply with bladder training regimen Teach patient's [id number] bladder training regiment and catheterization procedure If family demonstrates the ability for bladder training at home she may be discharged later today
--- NOTE | 2018-11-17 08:44 | PROVIDER PROGRESS NOTE ---
Subjective - Prog Note Date Prog Note Date: 11/16/18 Prog Note Time: 18:30 - Subjective Pt reports feeling: No change Subjective: Patient continued bladder training per regiment throughout the day. Occasional doses of oxycodone required for pain control. Bladder training did not meet criteria. Patient is not had a bowel movement and expresses some anxiety. These factors cause increased levator plate tension and hamper bladder training. To stimulate defecation mag citrate will be added to laxative probe protocol. Will continue bladder training until 9:00 PM and then resume bladder rest. Anticipate reduction in postvoid residuals after bowel movement. Objective - Vital Signs/Intake & Output Vital Signs: Vital Signs x48h Temp Pulse Resp BP Pulse Ox 11/17/18 08:01 97.9 F 88 18 110/55 L 97 11/17/18 04:10 97.9 F 67 16 112/55 L 95 Intake & Output: Intake & Output 11/14/18 11/15/18 11/16/18 11/17/18 23:59 23:59 23:59 23:59 Intake Total 2450 1450 1160 510 Output Total 750 3325 3965 400 Balance 5414 -2787 -8872 110 - Lab Results Fish Bones: 11/16/18 05:18 11/15/18 06:15
--- NOTE | 2018-11-17 08:48 | PROVIDER PROGRESS NOTE ---
Subjective - Prog Note Date Prog Note Date: 11/16/18 Prog Note Time: 23:30 - Subjective Pt reports feeling: No change Subjective: I was informed by charge nurse that patient's admission status requires full admit as opposed to observation. Verbal order for admission given. Reason being patient is still having retention and pain that preclude discharge. Anticipate patient to require another day of bladder training but total h ospitalization time should be less than 96 hours. Objective - Vital Signs/Intake & Output Vital Signs: Vital Signs x48h Temp Pulse Resp BP Pulse Ox 11/17/18 08:01 97.9 F 88 18 110/55 L 97 11/17/18 04:10 97.9 F 67 16 112/55 L 95 Intake & Output: Intake & Output 11/14/18 11/15/18 11/16/18 11/17/18 23:59 23:59 23:59 23:59 Intake Total 2450 1450 1160 510 Output Total 750 3325 3965 400 Balance 5321 -1770 -5851 110 - Lab Results Fish Bones: 11/16/18 05:18 11/15/18 06:15
[2018-11-17] MEDS ORDERED: LORazepam 0.5 MG TABLET PO PRN (08:49)
[2018-11-17] MEDS ORDERED: DOCUSATE SODIUM 250 MG CAPSULE PO SCH (09:00)
[2018-11-17] MEDS: LACTULOSE 10 GM /15 ML UDC PO SCH (09:17)
[2018-11-17] MEDS: NICOTINE 14 MG PATCH TOP SCH (09:18)
[2018-11-17] MEDS: POLYETHYLENE GLYCOL 3350 17 GM PACKET PO SCH (09:18)
--- NOTE | 2018-11-17 09:18 | Discharge Plan ---
Discharge Plan Disposition: Home, Self Care Condition: Stable Diet: Regular (High Fiber) Activity Restrictions: Activity as Tolerated (Walk daily) Shower Restrictions: No Driving Restrictions: Yes (No driving while taking narcotics) Weight Bearing: Full Weight (Patient to continue bladder training at home and keep log of voided volumes & PVR. To be seen Monday or Monday) No Smoking: If you smoke, Please STOP! Call for help. Follow-up with: Gracy Larose ARNP [Primary Care Provider] -
[2018-11-17 16:00] VITALS: BP 115/66
--- NOTE | 2018-11-17 20:27 | DISCHARGE SUMMARY ---
Physician: Flaco Astorga MD DATE OF ADMISSION: 11/15/2018 DATE OF DISCHARGE: 11/17/2018 DIAGNOSES 1. Cervical intraepithelial neoplasia grade 3, await final pathology report. 2. Grade 3 rectocele with smaller cystocele. 3. Chronic constipation. 4. Fecal incontinence. PROCEDURE: Laparoscopic-assisted vaginal hysterectomy with bilateral salpingo- oophorectomy; sacral spinous colpopexy; rectocele repair; perineoplasty; cystoscopy. COMPLICATIONS: None. HISTORY: Patient is a 58-year-old , 2, para 2-0-0-2, woman with a history of traumatic births that include internal rotation, forceps, and large episiotomy. For the last 2 years, patient reports pelvic pressure and at times feels as "she is sitting on her vagina." She notes associated pelvic pain and shifts in uterine position. Patient had a history of abnormal Pap smear inclusive of ASCUS that prompted colposcopy. 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 After counseling, patient preferred definitive treatment and elected a hysterectomy with pelvic reconstruction. Patient reports situational adjustment reactions with anxiety attacks. Reference typewritten H and P. HOSPITAL COURSE: Patient was admitted on 11/14/2018 and underwent an uneventful LAVH with pelvic reconstruction. Total blood loss was 50 mL. Patient went to the recovery room in good condition. Reference typewritten operative note.Postoperatively, patient had bouts of hypotension without concomitant elevation in pulse. Postoperative hemoglobin was 10.6 on the 3rd, and repeat hemoglobin was the same 10.6 on the 4th. Sodium 136, potassium 3.7, glucose 102, creatinine 0.6. On postoperative day 1, patient had urinary retention and could not manage self- catheterization and bladder training. Bladder training regimen was begun on the morning of 15 November. Her postvoid residuals were high, and in the evening she was placed on bladder rest. On postoperative day #2, bladder training was begun and again postvoid residuals remained high and patient could not produce a bowel movement. Concomitantly this caused increased levator plate tension, which further impeded voiding. On postoperative day #3, patient was taught to self-cath. Additionally, patient's family ([id number] assistant director of nursing) was taught the bladder regimen. Postvoid residuals improved but did not meet criteria (+300cc). Patient was prepared for discharge home with catheter for self cathing, top hat, and a graduated cylinder. I reviewed the bladder training regimen and ensured that patient had no questions. Nursing staff reviewed bladder training regimen with the family prior to discharge Patient was given warning sign and callback instructions prior to discharge. DISCHARGE MEDICATIONS 1. Motrin 600 q.6 hours. 2. Oxycodone 5 mg q.4 hours p.r.n. pain. 3. Colace 250 b.i.d. 4. Milk of Magnesia 30 mL at bedtime. FOLLOWUP: Next week to review progress on bladder training. cc: Flaco Astorga MD cc: ARCHANA Skinner TD: 11/17/2018 09:13 [email or web address]
== END 2018-11-17 17:05 | disposition home or self-care (01) ==
LOC: SDS 07:20 → MS2 12:31 → SDS 11-15 15:19 → MS2 11-15 15:20
PROVIDERS: ADMIT Obstetrics & Gynecology; ATTEND Obstetrics & Gynecology
PROC: 0UT9FZZ Resection of Uterus, Via Natural or Artificial Opening With Percutaneous Endoscopic Assistance (ICD-10-PCS; principal; 2018-11-15)
PROC: 0UT2FZZ Resection of Bilateral Ovaries, Via Natural or Artificial Opening With Percutaneous Endoscopic Assistance (ICD-10-PCS; 2018-11-15)
PROC: 0UT7FZZ Resection of Bilateral Fallopian Tubes, Via Natural or Artificial Opening With Percutaneous Endoscopic Assistance (ICD-10-PCS; 2018-11-15)
PROC: 0JQC0ZZ Repair Pelvic Region Subcutaneous Tissue and Fascia, Open Approach (ICD-10-PCS; 2018-11-15)
PROC: 0USG7ZZ Reposition Vagina, Via Natural or Artificial Opening (ICD-10-PCS; 2018-11-15)
PROC: 0TJB8ZZ Inspection of Bladder, Via Natural or Artificial Opening Endoscopic (ICD-10-PCS; 2018-11-15)
DX: N81.4 Uterovaginal prolapse, unspecified (principal); N99.89 Other postprocedural complications and disorders of genitourinary system; R33.8 Other retention of urine; D06.0 Carcinoma in situ of endocervix; I95.9 Hypotension, unspecified; R15.9 Full incontinence of feces; K59.09 Other constipation; K21.9 Gastro-esophageal reflux disease without esophagitis; F17.200 Nicotine dependence, unspecified, uncomplicated; F41.9 Anxiety disorder, unspecified
CPT/HCPCS: 36415; 51701; 58552; 71046; 80053; 85025; 93005; A9270; J0131; J0690; J1170; J3010; J7120

== ENCOUNTER 2018-12-07 08:00 | Outpatient (CLI) | payer MEDICAID ==
[2018-12-07 18:10] LABS: BILIRUBIN,URINE NEGATIVE (NEGATIVE); GLUCOSE, URINE (UA) NEGATIVE (NEGATIVE); KETONES,URINE (UA) NEGATIVE (NEGATIVE); LEUKOCYTE ESTERASE, URINE NEGATIVE (NEGATIVE); NITRITE,URINE NEGATIVE (NEGATIVE); OCCULT BLOOD,URINE NEGATIVE (NEGATIVE); PROTEIN,URINE NEGATIVE (NEGATIVE); UROBILINOGEN,URINE 0.2 (NORMAL) E.U./dL (NORMAL)
[2018-12-07 18:11] LABS: CLARITY,URINE CLEAR (CLEAR)
== END 2018-12-07 23:59 | disposition home or self-care (01) ==
LOC: LAB.R 08:00
PROVIDERS: ATTEND Obstetrics & Gynecology
DX: R39.15 Urgency of urination (principal)
CPT/HCPCS: 81001; 81003; 87086

== ENCOUNTER 2019-07-22 09:50 | Outpatient (CLI) | payer MEDICAID ==
--- NOTE | 2019-07-22 17:44 | Mammography Report ---
Reason: SCREENING MAMMO Procedure Date: 07/22/2019 Accession Number: [id number] / [id number] Procedure: MGN - Screening Mammo Dig Bilat CPT Code: FULL RESULT: EXAM: Screening Mammo Dig Bilat DATE: 07/22/2019 10:54 AM CLINICAL HISTORY: Routine screening TECHNIQUE: (B) - Bilateral CC and MLO views were obtained. COMPARISON: 07/20/2018, 12/05/2016, 07/30/2015, 12/09/2013, and 09/12/2011 PARENCHYMAL PATTERN: (A) - The breasts demonstrate scattered fibroglandular densities bilaterally. FINDINGS: No significant interval change. There are no suspicious masses, calcifications, or areas of distortion. IMPRESSION: Negative examination. BI-RADS category 1. RECOMMENDATION: (ANNUAL) - Recommend routine annual screening mammography. BI-RADS CATEGORY: (1) - Negative. STANDARD QUALIFYING STATEMENTS: 1. This examination was not reviewed with the aid of Computer-Aided Detection (CAD). 2. A negative or benign imaging report should not preclude biopsy if clinically suspicious findings are present. 3. Dense breasts may obscure an underlying neoplasm. 4. This examination was reviewed without the aid of 3D breast imaging (tomosynthesis).
== END 2019-07-22 09:51 | disposition home or self-care (01) ==
LOC: DI.N 09:50
DX: Z12.31 Encounter for screening mammogram for malignant neoplasm of breast (principal)
CPT/HCPCS: 77067

== ENCOUNTER 2019-12-11 08:00 | Outpatient (CLI) | payer MEDICAID ==
[2019-12-11 12:15] LABS: BASOPHILS # (AUTO) 0.1 10^3/uL (0.0-0.1); BASOPHILS % (AUTO) 0.9 %; EOSINOPHILS # (AUTO) 0.2 10^3/uL (0.0-0.7); EOSINOPHILS % (AUTO) 3.4 %; LYMPHOCYTES # (AUTO) 2.3 10^3/uL (1.5-3.5); LYMPHOCYTES % (AUTO) 32.9 %; MEAN CORPUSCULAR HEMOGLOBIN 32.6 pg (27.0-31.0); MEAN CORPUSCULAR VOLUME 101.6 fL (81.0-99.0); MEAN PLATELET VOLUME 11.8 fL (7.9-10.8); MONOCYTES # (AUTO) 0.5 10^3/uL (0.0-1.0); MONOCYTES % (AUTO) 7.5 %; NEUTROPHILS # (AUTO) 3.9 10^3/uL (1.5-6.6); PLT - PLATELET COUNT 237 10^3/uL (130-450); RED CELL DISTRIBUTION WIDTH 13.3 % (12.0-15.0)
[2019-12-11 12:34] LABS: ALBUMIN/GLOBULIN RATIO 1.4 (1.0-2.2); ALKALINE PHOSPHATASE 55 IU/L (42-121); ALT ALANINE AMINOTRANSFERASE 12 IU/L (10-60); AST ASPARTATE AMINOTRANSFERASE 17 IU/L (10-42); BILIRUBIN,TOTAL 0.7 mg/dL (0.2-1.0); BUN - BLOOD UREA NITROGEN 18 mg/dL (6-20); CALCIUM 8.9 mg/dL (8.5-10.3); CARBON DIOXIDE - CO2 25 mmol/L (21-32); CHLORIDE 107 mmol/L (101-111); CHOL/HDL RATIO 5.2 (<4.4); CHOLESTEROL 165 mg/dL; CREATININE 0.7 mg/dL (0.4-1.0); GFR - MDRD 85 (>89); GLUCOSE 117 mg/dL (70-100); HDL CHOLESTEROL 32 mg/dL; LDL CHOLESTEROL,CALCULATED 113 mg/dL; LDL/HDL RATIO 3.5 (<4.4); SODIUM 140 mmol/L (135-145); TOTAL PROTEIN 6.8 g/dL (6.7-8.2); VLDL CHOLESTEROL 20 mg/dL
== END 2019-12-11 23:59 | disposition home or self-care (01) ==
LOC: LAB.N 08:00
PROVIDERS: ATTEND Nurse Practitioner Gerontology
DX: Z13.9 Encounter for screening, unspecified (principal); Z12.11 Encounter for screening for malignant neoplasm of colon
CPT/HCPCS: 36415; 80053; 80061; 83721; 85025

== ENCOUNTER 2020-08-06 14:25 | Outpatient (CLI) | payer MEDICAID ==
--- NOTE | 2020-08-07 12:03 | Mammography Report ---
BILATERAL DIGITAL SCREENING MAMMOGRAM 3D/2D: 08/06/2020 CLINICAL: Routine screening. Comparison is made to exams dated: 07/22/2019 mammogram, 07/20/2018 mammogram, 12/05/2016 mammogram - [facility], 07/30/2015 mammogram, 12/09/2013 mammogram, and 09/12/2011 mammogram - [facility]. There are scattered fibroglandular elements in both breasts. No significant masses, calcifications, or other findings are seen in either breast. There has been no significant interval change. IMPRESSION: NEGATIVE There is no mammographic evidence of malignancy. A 1 year screening mammogram is recommended. This exam was interpreted at Station ID: [id number]. NOTE: For mammograms, a report in lay terms will be sent to the patient. Approximately 15% of breast malignancies will not be visualized mammographically. In the management of a palpable breast mass, a negative mammogram must not discourage biopsy of a clinically suspicious lesion. Electronically Signed By: Suresh Vasquez M.D. [email or web address]:08/06/2020 15:38:27 ACR BI-RADS Category 1: Negative 3341F PARENCHYMAL PATTERN: (A) - The breast(s) demonstrate(s) scattered fibroglandular densities. BI-RADS CATEGORY: (1) - 1 RECOMMENDATION: (ANNUAL) - Recommend routine annual screening mammography. [id number] 1 year screening LATERALITY: (B)
== END 2020-08-06 14:26 | disposition home or self-care (01) ==
LOC: DI.N 14:25
DX: Z12.31 Encounter for screening mammogram for malignant neoplasm of breast (principal)
CPT/HCPCS: 77063; 77067

== ENCOUNTER 2021-05-20 08:00 | Outpatient (CLI) | payer MEDICAID | END 2021-05-20 23:59 | disposition home or self-care (01) | LOC: LAB.N 08:00 | PROVIDERS: ATTEND Family Medicine | DX: N39.0 Urinary tract infection, site not specified (principal) | CPT/HCPCS: 87086; 87181 ==

== ENCOUNTER 2021-08-16 10:58 | Outpatient (CLI) | payer MEDICAID ==
--- NOTE | 2021-08-17 08:56 | Mammography Report ---
BILATERAL DIGITAL SCREENING MAMMOGRAM 3D/2D: 08/16/2021 CLINICAL: Routine screening. Comparison is made to exams dated: 08/06/2020 mammogram, 07/22/2019 mammogram, 07/20/2018 mammogram, 12/05 mammogram - [facility], 07/30/2015 mammogram, and 12/09/2013 mammogram - [facility]. There are scattered fibroglandular elements in both breasts. No significant masses, calcifications, or other findings are seen in either breast. There has been no significant interval change. IMPRESSION: NEGATIVE There is no mammographic evidence of malignancy. A 1 year screening mammogram is recommended. This exam was interpreted at Station ID: [id number]. NOTE: For mammograms, a report in lay terms will be sent to the patient. Approximately 15% of breast malignancies will not be visualized mammographically. In the management of a palpable breast mass, a negative mammogram must not discourage biopsy of a clinically suspicious lesion. Electronically Signed By: Ash Diaz M.D., jr/portia:08/16/2021 11:42:20 ACR BI-RADS Category 1: Negative 3341F PARENCHYMAL PATTERN: (A) - The breast(s) demonstrate(s) scattered fibroglandular densities. BI-RADS CATEGORY: (1) - 1 RECOMMENDATION: (ANNUAL) - Recommend routine annual screening mammography. [id number] 1 year screening LATERALITY: (B)
== END 2021-08-16 10:59 | disposition home or self-care (01) ==
LOC: DI.N 10:58
DX: Z12.31 Encounter for screening mammogram for malignant neoplasm of breast (principal)

== ENCOUNTER 2022-08-04 08:00 | Outpatient (CLI) | payer MEDICAID ==
[2022-08-04 18:47] LABS: BILIRUBIN,URINE NEGATIVE (NEGATIVE); GLUCOSE, URINE (UA) NEGATIVE (NEGATIVE); KETONES,URINE (UA) NEGATIVE (NEGATIVE); LEUKOCYTE ESTERASE, URINE NEGATIVE (NEGATIVE); NITRITE,URINE NEGATIVE (NEGATIVE); OCCULT BLOOD,URINE TRACE-INTA (NEGATIVE); PROTEIN,URINE NEGATIVE (NEGATIVE); UROBILINOGEN,URINE 0.2 (NORMAL) E.U./dL (NORMAL)
[2022-08-04 18:49] LABS: CLARITY,URINE CLEAR (CLEAR)
[2022-08-04 19:25] LABS: BACTERIA,URINE Few /HPF (None Seen); RBC,URINE 0-5 /HPF (0-5); SQUAMOUS EPITHELIAL CELL,UR FEW Squamous (<= Few); WBC,URINE 0-3 /HPF (0-5)
== END 2022-08-04 23:59 | disposition home or self-care (01) ==
LOC: LAB.N 08:00
PROVIDERS: ATTEND Emergency Medicine
DX: R30.0 Dysuria (principal)
CPT/HCPCS: 81001; 87086

== ENCOUNTER 2023-02-03 09:30 | Outpatient (CLI) | payer MEDICAID ==
[2023-02-03 12:01] LABS: BASOPHILS % (AUTO) 0.7 %; EOSINOPHILS # (AUTO) 0.1 10^3/uL (0.0-0.7); EOSINOPHILS % (AUTO) 2.1 %; HCT - HEMATOCRIT 45.4 % (37.0-47.0); HGB - HEMOGLOBIN 14.8 g/dL (12.0-16.0); LYMPHOCYTES # (AUTO) 1.4 10^3/uL (1.5-3.5); MEAN CORPUSCULAR HEMOGLOBIN 32.4 pg (27.0-31.0); MEAN CORPUSCULAR HGB CONC 32.6 g/dL (32.0-36.0); MEAN CORPUSCULAR VOLUME 99.3 fL (81.0-99.0); MEAN PLATELET VOLUME 11.2 fL (7.9-10.8); MONOCYTES # (AUTO) 0.4 10^3/uL (0.0-1.0); MONOCYTES % (AUTO) 7.6 %; NEUTROPHILS # (AUTO) 3.8 10^3/uL (1.5-6.6); NEUTROPHILS % (AUTO) 65.4 %; PLT - PLATELET COUNT 255 10^3/uL (130-450); RED BLOOD COUNT 4.57 10^6/uL (4.20-5.40); RED CELL DISTRIBUTION WIDTH 13.1 % (12.0-15.0); WHITE BLOOD COUNT 5.8 x10^3/uL (4.8-10.8)
[2023-02-03 12:24] LABS: ESTIMATED AVERAGE GLUCOSE 94 mg/dL (70-100); HEMOGLOBIN A1c% 4.9 % (4.27-6.07)
[2023-02-03 12:30] LABS: ALBUMIN 4.2 g/dL (3.2-5.5); ALBUMIN/GLOBULIN RATIO 1.4 (1.0-2.2); ALKALINE PHOSPHATASE 67 IU/L (42-121); ALT ALANINE AMINOTRANSFERASE 13 IU/L (10-60); AST ASPARTATE AMINOTRANSFERASE 18 IU/L (10-42); BILIRUBIN,TOTAL 0.5 mg/dL (0.2-1.0); BUN - BLOOD UREA NITROGEN 15 mg/dL (6-20); CALCIUM 9.1 mg/dL (8.5-10.3); CARBON DIOXIDE - CO2 25 mmol/L (21-32); CHLORIDE 109 mmol/L (101-111); CHOLESTEROL 194 mg/dL; CREATININE 0.7 mg/dL (0.4-1.0); GFR - MDRD 84 (>89); GLUCOSE 117 mg/dL (70-100); HDL CHOLESTEROL 39 mg/dL; LDL CHOLESTEROL,CALCULATED 138 mg/dL; LDL/HDL RATIO 3.5 (<4.4); POTASSIUM 4.3 mmol/L (3.5-5.0); SODIUM 140 mmol/L (135-145); THYROID STIMULATING HORMONE 1.5 uIU/mL (0.34-5.60); TOTAL PROTEIN 7.3 g/dL (6.7-8.2); TRIGLYCERIDES 87 mg/dL; VLDL CHOLESTEROL 17 mg/dL
== END 2023-02-03 09:31 | disposition home or self-care (01) ==
LOC: LAB.N 09:30
PROVIDERS: ATTEND Nurse Practitioner
DX: N18.2 Chronic kidney disease, stage 2 (mild) (principal); Z13.220 Encounter for screening for lipoid disorders; R73.9 Hyperglycemia, unspecified; R53.83 Other fatigue
CPT/HCPCS: 36415; 80050; 80061; 83036; 83721

== ENCOUNTER 2023-02-06 12:41 | Outpatient (CLI) | payer MEDICAID ==
--- NOTE | 2023-02-07 09:36 | Mammography Report ---
BILATERAL DIGITAL SCREENING MAMMOGRAM 3D/2D: 02/06/2023 CLINICAL: Routine screening. Comparison is made to exams dated: 08/16/2021 mammogram, 08/06/2020 mammogram, and 07/22/2019 mammogram - [facility]. There are scattered areas of fibroglandular density in both breasts (category b / 25%-50% glandular t issue). No significant masses, calcifications, or other findings are seen in either breast. There has been no significant interval change. IMPRESSION: NEGATIVE There is no mammographic evidence of malignancy. A 1 year screening mammogram is recommended. Based on the Tyrer Cuzick model (a risk assessment model) the patients lifetime risk is 5.1% and her 10 year risk is 2.3%. According to the ACR, ACS, and NCCN guidelines, an annual breast MRI exam kizzy g with mammogram is recommended if the patients lifetime risk is 20% or greater. This exam was interpreted at Station ID: [id number]. NOTE: For mammograms, a report in lay terms will be sent to the patient. Approximately 15% of breast malignancies will not be visualized mammographically. In the management of a palpable breast mass, a negative mammogram must not discourage biopsy of a clinically suspicious lesion. Electronically Signed By: Good villareal/portia:02/06/2023 14:51:21 letter sent: No_Letter ACR BI-RADS Category 1: Negative 3341F PARENCHYMAL PATTERN: (A) - The breast(s) demonstrate(s) scattered fibroglandular densities. BI-RADS CATEGORY: (1) - 1 Mammogram [id number] 1 year screening LATERALITY: (B)
== END 2023-02-06 12:42 | disposition home or self-care (01) ==
LOC: DI.N 12:41
DX: Z12.31 Encounter for screening mammogram for malignant neoplasm of breast (principal)

== ENCOUNTER 2024-01-09 12:26 | Outpatient (CLI) | payer MEDICARE, MEDICAID ==
[2024-01-09 18:35] LABS: BUN - BLOOD UREA NITROGEN 14 mg/dL (6-20); CALCIUM 9.5 mg/dL (8.5-10.3); CARBON DIOXIDE - CO2 26 mmol/L (21-32); CHLORIDE 107 mmol/L (101-111); CHOL/HDL RATIO 4.7 (<4.4); CHOLESTEROL 187 mg/dL; CREATININE 0.7 mg/dL (0.6-1.3); GFR - MDRD 84 (>89); GLUCOSE 82 mg/dL (74-104); HDL CHOLESTEROL 40 mg/dL; LDL CHOLESTEROL,CALCULATED 125 mg/dL; LDL/HDL RATIO 3.1 (<4.4); POTASSIUM 4.3 mmol/L (3.5-4.5); SODIUM 138 mmol/L (135-145); TRIGLYCERIDES 108 mg/dL (48-352); VLDL CHOLESTEROL 22 mg/dL
[2024-01-12 04:09] LABS: HCV AB Non Reactive (Non Reactive)
== END 2024-01-09 12:27 | disposition home or self-care (01) ==
LOC: LAB.N 12:26
PROVIDERS: ATTEND Nurse Practitioner
DX: R73.9 Hyperglycemia, unspecified (principal); Z13.220 Encounter for screening for lipoid disorders; Z11.59 Encounter for screening for other viral diseases
CPT/HCPCS: 36415; 80048; 80061; 83721; 86803

== ENCOUNTER 2024-03-08 11:47 | Outpatient (CLI) | payer MEDICARE, MEDICAID ==
--- NOTE | 2024-03-08 13:43 | DEXA Report ---
PROCEDURE: Dexa Spine and/or Hip INDICATIONS: POST MENOPAUSAL TECHNIQUE: Dual energy x-ray absorptiometry (DXA) was performed on a W4 System. Regions measur ed are the AP Spine, femoral neck, and if needed forearm. COMPARISON: None FINDINGS: Lumbar Spine: Bone Mineral Density: 0.875 g/cm/cm,T score: -2.5. Left Femoral Neck: Bone Mineral Density: 0.679 g/cm/cm, T score: -2.6. Left Hip: Bone Mineral Density: 0.661 g/cm/cm,T score: -2.8. (T score greater or equal to -1.0: NORMAL) (T score from -1.1 to -2.4: OSTEOPENIA) (T score less than or equal to -2.5 to: OSTEOPOROSIS) Impression: By WHO criteria, this patient has osteoporosis. Patients with diagnosis of osteoporosis or osteopenia should have regular bone mineral density assess ment. For those eligible for Medicare, routine testing is allowed once every 2 years. Testing frequ ency can be increased for patients who have rapidly progressing disease or for those who are receivin g medical therapy to restore bone mass. Reviewed by: Marcos Rosado MD on 03/08/2024 1:42 PM PDT Approved by: Marcos Rosado MD on 03/08/2024 1:42 PM PDT Station ID: [id number]
--- NOTE | 2024-03-08 21:53 | CT Report ---
PROCEDURE: Lung Cancer Screen INDICATIONS: LUNG CA SCREEN TECHNIQUE: A CT scan of the chest was performed. Intravenous contrast media was not administered. Images were re corded and evaluated at appropriate window settings. Reformats: axial MIP of the chest, coronal and s agittal. For radiation dose reduction, the following was used: automated exposure control, adjustment of mA and/or kV according to patient size. COMPARISON: None. FINDINGS: Image quality: Excellent. Prior cancer history: None Lungs:Mild paraseptal emphysema. Mild peripheral reticulation with lower lobe predominance, likely re presenting mild pulmonary fibrosis. 4 mm pulmonary nodule in the right middle lobe (4:66). Multiple s ub-4 mm pulmonary nodule in the right lung. A cluster of pulmonary nodule in the left lingula, with t he largest measuring 5 mm, favoring to represent inflammatory versus infectious etiology. No pleural effusion or pneumothorax. No pulmonary edema or focal consolidation. Soft tissue/mediastinum/heart: Heart is normal in size. No pericardial effusion.Moderate LAD and left circumflex coronary artery calcification. Mild atherosclerotic calcification of the thoracic aorta. No thoracic aortic aneurysm. No mediastinal, hilar, or axillary lymphadenopathy. Visualized portion of the upper abdomen:Status post cholecystectomy. Bones: Mild levoscoliosis of the thoracic spine. IMPRESSION: Multiple pulmonary nodule, with the largest measuring 5 mm in the left lingula. Additional mild infla mmatory versus infectious etiology in the left lingula. Lung RAD: 2 - Benign. Recommendation: Continue annual screening in 12 Months with LDCT Non-Lung Significant Findings: Pulmonary Fibrosis. Reviewed by: Pema Dyer MD on 03/08/2024 9:51 PM PDT Approved by: Pema Dyer MD on 03/08/2024 9:51 PM PDT Station ID: [id number]
== END 2024-03-08 11:48 | disposition home or self-care (01) ==
LOC: DI 11:47
PROVIDERS: ATTEND Nurse Practitioner
DX: Z12.2 Encounter for screening for malignant neoplasm of respiratory organs (principal); R91.8 Other nonspecific abnormal finding of lung field; J84.10 Pulmonary fibrosis, unspecified; M81.0 Age-related osteoporosis without current pathological fracture